=== PATIENT | male | born 1965 | race Caucasian/White ===

== ENCOUNTER 2019-06-03 12:24 | Emergency (ER) | payer OTHER ==
[~2019-06-03] VITALS: Ht 182.9 cm; Wt 95.3 kg
[2019-06-03] MEDS ORDERED: KEPPRA500 MG PO (12:33)
[2019-06-03] MEDS ORDERED: DILANTIN100 MG PO (12:33)
[2019-06-03] MEDS ORDERED: TRIUMEQ TABLET1 EACH PO (12:33)
[2019-06-03] MEDS ORDERED: COZAAR50 MG PO (12:34)
[2019-06-03] MEDS ORDERED: KEPPRA1000 MG PO (12:34)
[2019-06-03] MEDS ORDERED: TOPROL XL100 M1 PO (12:35)
== END 2019-06-03 23:29 | disposition home or self-care (01) ==
LOC: ER
DX: G40.89 Other seizures (principal)

== ENCOUNTER 2019-07-18 14:33 | Emergency (ER) | payer OTHER ==
[~2019-07-18] VITALS: Ht 167.6 cm; Wt 87.1 kg
[~2019-07-18 14:33] MED LIST: COZAAR50 MG PO; DILANTIN100 MG PO; KEPPRA1000 MG PO; KEPPRA500 MG PO; TOPROL XL100 M1 PO; TRIUMEQ TABLET1 EACH PO
== END 2019-07-18 21:15 | disposition home or self-care (01) ==
LOC: ER 14:33
DX: G40.802 Other epilepsy, not intractable, without status epilepticus (principal)

== ENCOUNTER 2022-05-23 11:35 | Emergency (ER) | payer OTHER ==
[~2022-05-23] VITALS: Ht 175.3 cm; Wt 85.3 kg
== END 2022-05-23 18:08 | disposition home or self-care (01) ==
LOC: ER 11:35
DX: S93.402A Sprain of unspecified ligament of left ankle, initial encounter (principal); W18.30XA Fall on same level, unspecified, initial encounter; Y93.9 Activity, unspecified; Y92.488 Other paved roadways as the place of occurrence of the external cause; Y99.9 Unspecified external cause status; Z88.8 Allergy status to other drugs, medicaments and biological substances

== ENCOUNTER 2022-05-25 11:26 | Emergency (ER) | payer OTHER ==
[~2022-05-25] VITALS: Ht 172.7 cm; Wt 90.7 kg
== END 2022-05-25 16:00 | disposition home or self-care (01) ==
LOC: ER 11:26
DX: R56.9 Unspecified convulsions (principal); R53.1 Weakness; Z88.8 Allergy status to other drugs, medicaments and biological substances; Z21 Asymptomatic human immunodeficiency virus [HIV] infection status; E03.9 Hypothyroidism, unspecified